=== PATIENT | female | born 1985 | race Caucasian/White ===

== ENCOUNTER 2016-08-25 07:30 | Inpatient (IN) | payer OTHER ==
[~2016-08-25] VITALS: Ht 167.6 cm; Wt 93.0 kg
[~2016-08-25 07:30] MED LIST: /PANT40TA PO; AUGM875T27 PO; KEFL500C7 PO; METF500T PO; NORCOTAB PO; PRENTAB9 PO; VENTAER IN; ZYRT10CA PO; ceftin PO
[2016-08-28] VITALS (8 sets, daily range): BP systolic 116–145; BP diastolic 65–86
[2016-08-28] MEDS ORDERED: LR 1,000 ML IV ONE (05:45)
[2016-08-28 05:53] LABS: MEAN CORPUSCULAR HEMOGLOBIN 32.3 pg (27.0-33.0); MEAN CORPUSCULAR HGB CONC 36.3 g/dl (32.0-36.5); MEAN CORPUSCULAR VOLUME 88.8 fl (80.0-96.0); RED CELL DISTRIBUTION WIDTH 12.7 % (11.5-14.5); WHITE BLOOD COUNT 11.7 K/mm3 (4.0-10.0)
[2016-08-28] MEDS ORDERED: BICITRA 30ML SOLN UDC PO ONE (06:00)
[2016-08-28] MEDS ORDERED: LR 1,000 ML IV SCH ×2 (06:30→09:45)
[2016-08-28] MEDS ORDERED: NALBUPHINE HCL 10 MG/ML AMP (J2300) IV PRN (07:50)
[2016-08-28] MEDS ORDERED: ONDANSETRON 4MG/2ML VIAL (J2405) IV PRN ×3 (07:50→09:45)
[2016-08-28] MEDS ORDERED: NALOXONE INJ 0.4 MG/1 ML VIAL (J2310) IV PRN ×2 (07:50)
[2016-08-28] MEDS ORDERED: METOCLOPRAMIDE INJ 10MG/2ML VIAL (J2765) IV PRN (07:50)
[2016-08-28] MEDS ORDERED: MORPHINE PRES-FREE INJ 10 MG/10 ML VIAL (J2274) As Ordered ONE (08:14)
[2016-08-28] MEDS ORDERED: ONDANSETRON 4MG/2ML VIAL (J2405) As Ordered ONE (08:16)
[2016-08-28] MEDS ORDERED: METOCLOPRAMIDE INJ 10MG/2ML VIAL (J2765) As Ordered ONE (08:16)
[2016-08-28] MEDS ORDERED: OXYTOCIN INJ 10 UNITS/ML VIAL (J2590) As Ordered ONE (08:16)
[2016-08-28] MEDS ORDERED: KETOROLAC 60 MG/2 ML VIAL (J1885) As Ordered ONE (08:16)
[2016-08-28] MEDS: PRENATAL VITAMIN TAB PO SCH (09:00)
[2016-08-28 09:04] LABS: CORD GAS ABE V -2.5; CORD GAS HCO3 V 23.2 MEQ/L; CORD GAS O2 SAT V 77.7 %; CORD GAS PCO2 V 43.1 mmHg; CORD GAS PH V 7.349 UNITS; CORD GAS PO2 V 33.3 mmHg; CORD GAS SBC V 21.9 MEQ/L; CORD GAS TCO2 V 24.5 MEQ/L
[2016-08-28] MEDS ORDERED: MEASLES,MUMPS,RUBELLA VACCINE INJ (MMR-II) (90707) SC SCH (09:15)
[2016-08-28] MEDS ORDERED: RHOGAM 300 MCG (1500 IU) INJ (J2790) IM SCH (09:15)
[2016-08-28] MEDS ORDERED: PROMETHAZINE 25 MG TAB PO PRN (09:15)
[2016-08-28] MEDS ORDERED: PERCOCET 5MG/325MG TAB PO PRN ×2 (09:15→09:45)
[2016-08-28] MEDS ORDERED: fentaNYL 100 MCG/2 ML INJECTION (J3010) IV PRN (09:45)
[2016-08-28] MEDS ORDERED: diphenhydrAMINE INJ 50MG/ML VIAL (J1200) IV PRN (09:45)
[2016-08-28] MEDS ORDERED: KETOROLAC 30 MG/ML VIAL (J1885) IV PRN (09:45)
[2016-08-28] MEDS ORDERED: MEPERIDINE INJ 25 MG/ML VIAL (J2175) IV PRN (09:45)
[2016-08-28] MEDS: KETOROLAC 30 MG/ML VIAL (J1885) IV SCH ×2 (13:22→20:25)
[2016-08-28] MEDS: LR 1,000 ML IV SCH ×2 (15:59→17:34)
[2016-08-28] MEDS: DOCUSATE SODIUM 100 MG CAP PO SCH (20:25)
[2016-08-29] MEDS: LR 1,000 ML IV SCH ×3 (01:13→16:40)
[2016-08-29] MEDS: KETOROLAC 30 MG/ML VIAL (J1885) IV SCH ×2 (01:13→07:47)
[2016-08-29 02:13] VITALS: BP 124/69
[2016-08-29] MEDS: PERCOCET 5MG/325MG TAB PO PRN ×2 (04:58→12:57)
[2016-08-29 06:24] VITALS: BP 114/58
[2016-08-29 07:19] LABS: MEAN CORPUSCULAR HEMOGLOBIN 31.8 pg (27.0-33.0); MEAN CORPUSCULAR HGB CONC 34.9 g/dl (32.0-36.5); MEAN CORPUSCULAR VOLUME 91.1 fl (80.0-96.0); RED CELL DISTRIBUTION WIDTH 12.8 % (11.5-14.5); WHITE BLOOD COUNT 11.2 K/mm3 (4.0-10.0)
[2016-08-29] MEDS: DOCUSATE SODIUM 100 MG CAP PO SCH ×2 (08:16→21:00)
[2016-08-29] MEDS: PRENATAL VITAMIN TAB PO SCH (08:17)
[2016-08-29 10:15] VITALS: BP 128/82
[2016-08-29 14:26] VITALS: BP 125/85
[2016-08-29] MEDS: IBUPROFEN 800 MG TAB PO SCH (15:41)
[2016-08-29] MEDS ORDERED: OXYC1TAB23 PO (17:48)
[2016-08-29] MEDS ORDERED: IBUP600T26 PO (17:49)
[2016-08-29] MEDS ORDERED: COLA100C PO (17:49)
[2016-08-29 18:12] VITALS: BP 120/81
[2016-08-30] MEDS: IBUPROFEN 800 MG TAB PO SCH ×2 (00:02→08:29)
[2016-08-30] MEDS: PRENATAL VITAMIN TAB PO SCH (08:28)
[2016-08-30] MEDS: DOCUSATE SODIUM 100 MG CAP PO SCH (08:28)
[2016-08-30] MEDS ORDERED: IBUP-1114 PO (09:46)
[2016-08-30] MEDS ORDERED: OXYC1TAB23 PO (09:46)
--- NOTE | 2016-08-30 10:55 | DSES ---
DATE OF ADMISSION: 08/28/2016 DATE OF DISCHARGE: 08/30/2016 DISCHARGE DIAGNOSIS: Repeat section. DISCHARGE CONDITION: Stable. HOSPITAL COURSE: Patient presented at 39 weeks 3 days estimated gestational age for a scheduled section. She underwent uncomplicated repeat section productive of a live born . is 9 and 9. Weighed 7 pounds, 3184 grams. Ms. Adam did well postoperatively. By postoperative day #2 had meet all discharge criteria's and discharged home in stable condition. PHYSICAL EXAMINATION ON DAY OF DISCHARGE: VITAL SIGNS: Her vital signs were stable. She was afebrile. GENERAL: Her general appearance was well-appearing. No acute distress. ABDOMEN: Was soft, non-tender. Her fundus is below the umbilicus. Her incision was clean, cry and intact, well-appointed with Steri-Strips. EXTREMITIES: Negative for calf tenderness. DISCHARGE MEDICATIONS: Colace, ibuprofen and Percocet. DISCHARGE INSTRUCTIONS: 1. She was instructed to follow up in two weeks. 2. Report severe pain, heavy bleeding, fever or incisional issues
== END 2016-08-30 11:50 | disposition home or self-care (01) | DRG 540 ==
LOC: M OBS 08-28 05:14
PROVIDERS: ADMIT Obstetrics & Gynecology; ATTEND Obstetrics & Gynecology
PROC: 10D00Z1 Extraction of Products of Conception, Low, Open Approach (ICD-10-PCS; principal; 2016-08-28 07:30)
DX: O99.12 Other diseases of the blood and blood-forming organs and certain disorders involving the immune mechanism complicating childbirth (principal); F17.200 Nicotine dependence, unspecified, uncomplicated; Z37.0 Single live birth; Z3A.39 39 weeks gestation of pregnancy; O34.211 Maternal care for low transverse scar from previous cesarean delivery; O99.334 Smoking (tobacco) complicating childbirth; D69.6 Thrombocytopenia, unspecified; Z83.3 Family history of diabetes mellitus; Z82.49 Family history of ischemic heart disease and other diseases of the circulatory system

== ENCOUNTER 2017-02-07 08:15 | Emergency (ER) | payer OTHER ==
[~2017-02-07] VITALS: Ht 167.6 cm; Wt 84.4 kg
[~2017-02-07 08:15] MED LIST changes: +COLA100C5 PO; +IBUP-1022 PO; +IBUP-1114 PO; +KEFL500C17 PO; -KEFL500C7 PO; +OXYC1TAB23 PO
[2017-02-07 08:18] VITALS: BP 134/83
[2017-02-07] MEDS ORDERED: CLEO300C2 PO (08:49)
[2017-02-07] MEDS ORDERED: MAGICMW MT (08:49)
[2017-02-07] MEDS ORDERED: NORCOTAB PO (08:49)
== END 2017-02-07 09:13 | disposition home or self-care (01) ==
LOC: M ED 08:15
DX: K04.7 Periapical abscess without sinus (principal); K02.9 Dental caries, unspecified; F17.200 Nicotine dependence, unspecified, uncomplicated; Z88.1 Allergy status to other antibiotic agents

== ENCOUNTER 2017-04-23 10:24 | Emergency (ER) | payer OTHER ==
[~2017-04-23] VITALS: Ht 167.6 cm; Wt 89.2 kg
[~2017-04-23 10:24] MED LIST changes: +CLEO300C2 PO; +MAGICMW MT
[2017-04-23] MEDS ORDERED: NS 1,000 ML IV ONE (13:30)
[2017-04-23 13:40] LABS: BASO % 0.4 % (0.0-1.0); EOS # 0.3 K/mm3 (0.0-0.50); EOS % 2.8 % (0.0-3.0); LARGE UNSTAINED CELL # 0.1 K/mm3 (0.0-0.4); LARGE UNSTAINED CELL % 1.1 % (0.0-4.0); LYMPH # 2.3 K/mm3 (1.5-4.5); LYMPH % 23.7 % (24.0-44.0); MEAN CORPUSCULAR HEMOGLOBIN 31.6 pg (27.0-33.0); MEAN CORPUSCULAR HGB CONC 34.8 g/dl (32.0-36.5); MEAN CORPUSCULAR VOLUME 90.9 fl (80.0-96.0); MONO # 0.3 K/mm3 (0.0-0.8); MONO % 3.2 % (0.0-5.0); NEUTROPHILS # 6.7 K/mm3 (1.8-7.7); NEUTROPHILS % 68.7 % (36.0-66.0); PLATELET COUNT, AUTOMATED 145 k/mm3 (150-450); WHITE BLOOD COUNT 9.8 K/mm3 (4.0-10.0)
--- NOTE | 2017-04-23 14:59 | REP ---
Clinical: Left Flank pain. Technique: Ballard scale and color Doppler evaluation of the kidneys and renal vasculature using curved array transducer. Findings: The kidneys are essentially normal in contour size and echogenicity and reniform shape without hydronephrosis, nephrolithiasis, cystic or renal mass lesion. Right kidney measures 12.1 x 4.8 x 4.8 cm. Left kidney measures 12.0 x 4.7 x 4.8 cm. Partial duplication of the bilateral kidneys cannot be excluded. Bladder is incompletely distended and grossly normal by current evaluation. Impression: Normal renal US. No hydronephrosis Signed by Marcus Iniguez MD 04/23/2017 02:52 P
--- NOTE | 2017-04-23 15:04 | REP ---
Obstetric sonography: History: Low back pain. Unknown LMP. Findings: Transabdominal and transvaginal scanning are performed. An intrauterine gestational sac is seen with a yolk sac, but no visible embryonic pole. A trace of free fluid is seen in the cul-de-sac. Mean sac size diameter of 12 mm corresponds with a gestational age estimate of 6 weeks 0 days. Uterine dimensions are 10.1 x 5.4 x 6.1 cm. There is a small fibroid measuring 0.7 cm in greatest diameter. A normal right ovary is seen with dimensions of 3.2 x 1.7 x 3.7 cm. Its Doppler flow is normal, resistive index 0.51. The left ovary measures 3.2 x 1.8 x 2.7 cm. Its Doppler flow was normal, resistive index 0.61. There is a paraovarian cyst in the left adnexa measuring 3.2 x 2.9 x 2.9 cm. Impression: 6-week size gestational sac in the uterus with a yolk sac but no identifiable embryonic pole. This is nonspecific. Early IUP versus missed AB. Cannot completely exclude ectopic, although this is felt to be unlikely. Consider clinical and possibly sonographic followup. There is a small 0.7 cm uterine fibroid. Signed by Ernst Black MD 04/23/2017 03:55 P
[2017-04-23 15:23] LABS: ANION GAP 9 MEQ/L (8-16); BLOOD UREA NITROGEN 4 MG/DL (7-18); CALCIUM LEVEL 8.2 MG/DL (8.5-10.1); CARBON DIOXIDE LEVEL 25 MEQ/L (21-32); CHLORIDE LEVEL 108 MEQ/L (98-107); CREATININE FOR GFR 0.58 MG/DL (0.55-1.02); GLOMERULAR FILTRATION RATE > 60.0 (>60); GLUCOSE, FASTING 83 MG/DL (70-105); HCG, SERUM QUANTITATIVE 10127 MIU/ML; SODIUM LEVEL 142 MEQ/L (136-145)
[2017-04-23 16:01] VITALS: BP 107/77
== END 2017-04-23 16:06 | disposition home or self-care (01) ==
LOC: M ED 10:24
DX: O26.891 Other specified pregnancy related conditions, first trimester (principal); R10.9 Unspecified abdominal pain; Z3A.00 Weeks of gestation of pregnancy not specified; Z88.1 Allergy status to other antibiotic agents; Z87.19 Personal history of other diseases of the digestive system

== ENCOUNTER → 2017-05-28 | Outpatient (CLI) | payer OTHER ==
[2017-05-28 15:04] LABS: HBsAg Prenatal NEGATIVE (NEGATIVE)
== END ==
LOC: M LAB 13:30
PROVIDERS: ATTEND Advanced Practice Midwife
DX: Z34.81 Encounter for supervision of other normal pregnancy, first trimester (principal)

== ENCOUNTER → 2017-05-30 | Outpatient (REF) | payer OTHER | LOC: M LAB REF 13:00 | PROVIDERS: ATTEND Advanced Practice Midwife | DX: Z34.81 Encounter for supervision of other normal pregnancy, first trimester (principal) ==

== ENCOUNTER → 2017-07-26 | Outpatient (CLI) | payer OTHER ==
--- NOTE | 2017-07-26 16:53 | REP ---
OB ULTRASOUND: Real-time sonographic evaluation of the gravid uterus is performed. There is a single living intrauterine gestation. Estimated gestational age is 18 weeks 4 days, EDC . Today's measurements indicate appropriate growth. BPD 42 mm = 18 weeks 6 days, 56th percentile HC 157 mm = 18 weeks 4 days, 50th percentile AC 134 mm = 18 weeks 6 days, 56th percentile FL 29 mm = 18 weeks 6 days, 55th percentile HC/AC ratio 1.17, within normal range. Estimated weight 259 grams, 55th percentile. Cervix is closed and measures 4.3 cm in length. heart rate 149 beats per minute. SEEN/GROSSLY UNREMARKABLE Lateral ventricles yes Posterior fossa yes Upper lip yes Four-chamber heart no LVOT no RVOT no Stomach yes Cord insertion yes Three vessel cord yes Kidneys no Bladder yes Spine no position: Breech. Placenta: Posterior and grade 1 with no previa or abruption. Amniotic fluid: Within normal limits. Signed by Arnulfo Ballard MD 07/27/2017 04:54 P
== END ==
LOC: M RAD 14:12
PROVIDERS: ATTEND Advanced Practice Midwife
DX: Z34.82 Encounter for supervision of other normal pregnancy, second trimester (principal)

== ENCOUNTER → 2017-10-18 | Outpatient (CLI) | payer OTHER ==
[2017-10-18 10:49] LABS: HEMATOCRIT 39.6 % (36.0-47.0); HEMOGLOBIN 13.4 g/dl (12.0-16.0); MEAN CORPUSCULAR HEMOGLOBIN 30.1 pg (27.0-33.0); MEAN CORPUSCULAR HGB CONC 33.8 g/dl (32.0-36.5); PLATELET COUNT, AUTOMATED 167 10^3/uL (150-450); RED BLOOD COUNT 4.45 10^6/uL (4.00-5.40); RED CELL DISTRIBUTION WIDTH 12.8 % (11.5-14.5); WHITE BLOOD COUNT 13.4 10^3/uL (4.0-10.0)
[2017-10-18 11:47] LABS: GLUCOSE CHALLENGE TEST 1 HOUR 91 MG/DL (LESS THAN 140)
== END ==
LOC: M LAB 08:17
DX: Z34.82 Encounter for supervision of other normal pregnancy, second trimester (principal)
CPT/HCPCS: 82950

== ENCOUNTER → 2017-10-18 | Outpatient (CLI) | payer OTHER | LOC: M RAD 08:28 | DX: Z34.82 Encounter for supervision of other normal pregnancy, second trimester (principal) | CPT/HCPCS: 76816 ==

== ENCOUNTER → 2017-11-23 | Outpatient (REF) | payer OTHER | LOC: M LAB REF 10:12 | DX: Z34.83 Encounter for supervision of other normal pregnancy, third trimester (principal) | CPT/HCPCS: 87081; 87186 ==

== ENCOUNTER 2017-12-17 06:01 | Inpatient (IN) | payer OTHER ==
[2017-12-17] MEDS ORDERED: ceFAZolin 2 GM/D5W 50 ML IV BAG (J0690 PER 500MG) As Ordered (06:38)
[2017-12-17] MEDS ORDERED: BICITRA 30ML SOLN UDC As Ordered (06:38)
[2017-12-17] MEDS: LR 1,000 ML IV ×4 (07:00→22:17)
[2017-12-17] MEDS: BICITRA 30ML SOLN UDC PO (07:00)
[2017-12-17 07:06] LABS: HEMATOCRIT 36.3 % (36.0-47.0); HEMOGLOBIN 12.6 g/dl (12.0-15.5); MEAN CORPUSCULAR HEMOGLOBIN 30.7 pg (27.0-33.0); MEAN CORPUSCULAR HGB CONC 34.7 g/dl (32.0-36.5); MEAN CORPUSCULAR VOLUME 88.5 fl (80.0-96.0); PLATELET COUNT, AUTOMATED 123 10^3/uL (150-450); RED CELL DISTRIBUTION WIDTH 13.3 % (11.5-14.5); WHITE BLOOD COUNT 11.3 10^3/uL (4.0-10.0)
[2017-12-17] MEDS ORDERED: LR 1,000 ML IV (07:30)
[2017-12-17] MEDS ORDERED: KETOROLAC 60 MG/2 ML VIAL (J1885) As Ordered (07:49)
[2017-12-17] MEDS ORDERED: fentaNYL 100 MCG/2 ML INJECTION (J3010) As Ordered (07:50)
[2017-12-17] MEDS ORDERED: ONDANSETRON 4MG/2ML VIAL (J2405) As Ordered (07:50)
[2017-12-17] MEDS ORDERED: MORPHINE PRES-FREE INJ 10 MG/10 ML VIAL (J2274) As Ordered (07:50)
[2017-12-17] MEDS ORDERED: OXYTOCIN INJ 10 UNITS/ML VIAL (J2590) As Ordered (07:50)
[2017-12-17] MEDS ORDERED: dexameTHASONE 4 MG/ML 1ML VIAL (J1100) As Ordered (07:50)
[2017-12-17] MEDS ORDERED: ONDANSETRON 4MG/2ML VIAL (J2405) IV ×3 (08:38→10:30)
[2017-12-17] MEDS ORDERED: NALBUPHINE HCL 10 MG/ML AMP (J2300) IV (08:38)
[2017-12-17] MEDS ORDERED: NALOXONE INJ 0.4 MG/1 ML VIAL (J2310) IV ×2 (08:38)
[2017-12-17] MEDS ORDERED: ePHEDrine SULFATE 25 MG/5 ML(5MG/ML) SYRINGE As Ordered (08:43)
[2017-12-17] MEDS ORDERED: PHENYLEPHRINE INJ 10MG/ML VIAL (J2370) As Ordered (08:43)
[2017-12-17] MEDS ORDERED: PHENYLephrine HCL 500 MCG/5 ML (100MCG/ML) SYRINGE (J2370) As Ordered (08:43)
[2017-12-17] MEDS: PRENATAL VITAMINS CHEWABLE TABLET PO (09:00)
[2017-12-17] MEDS ORDERED: DOCUSATE SODIUM 100 MG CAP PO (09:45)
[2017-12-17] MEDS ORDERED: MOM 30ML SUSPENSION UDC PO (09:45)
[2017-12-17] MEDS ORDERED: OXYTOCIN DRIP 30 UNITS in APPROPRIATE DILUENT 1 EA IV (09:45)
[2017-12-17] MEDS ORDERED: diphenhydrAMINE INJ 50MG/ML VIAL (J1200) IV (10:30)
[2017-12-17] MEDS ORDERED: PERCOCET 5MG/325MG TAB PO (10:30)
[2017-12-17] MEDS ORDERED: fentaNYL 100 MCG/2 ML INJECTION (J3010) IV (10:30)
[2017-12-17] MEDS ORDERED: MEPERIDINE INJ 25 MG/ML VIAL (J2175) IV (10:30)
[2017-12-17] MEDS ORDERED: METOCLOPRAMIDE INJ 10MG/2ML VIAL (J2765) IV (10:30)
[2017-12-17] MEDS ORDERED: OXYTOCIN 30 UNITS IN 0.9% NaCl 500ML IV BAG (J2590) As Ordered (11:10)
[2017-12-17] MEDS: OXYTOCIN DRIP 30 UNITS in APPROPRIATE DILUENT 1 EA IV (11:23)
[2017-12-17] MEDS: RHOGAM 300 MCG (1500 IU) INJ (J2790) IM (12:26)
[2017-12-17] MEDS: MEASLES,MUMPS,RUBELLA VACCINE INJ (MMR-II) (90707) SC (12:27)
[2017-12-17] MEDS: KETOROLAC 30 MG/ML VIAL (J1885) IV ×2 (14:21→19:54)
[2017-12-17] MEDS: METOCLOPRAMIDE INJ 10MG/2ML VIAL (J2765) IV (14:31)
[2017-12-18] MEDS: KETOROLAC 30 MG/ML VIAL (J1885) IV (02:06)
[2017-12-18 07:04] LABS: HEMATOCRIT 31.3 % (36.0-47.0); MEAN CORPUSCULAR HEMOGLOBIN 30.4 pg (27.0-33.0); MEAN CORPUSCULAR HGB CONC 33.9 g/dl (32.0-36.5); MEAN CORPUSCULAR VOLUME 89.7 fl (80.0-96.0); PLATELET COUNT, AUTOMATED 102 10^3/uL (150-450); RED BLOOD COUNT 3.49 10^6/uL (4.00-5.40); RED CELL DISTRIBUTION WIDTH 13.5 % (11.5-14.5); WHITE BLOOD COUNT 13.2 10^3/uL (4.0-10.0)
[2017-12-18 07:12] LABS: HEMOGLOBIN 10.6 g/dl (12.0-15.5)
[2017-12-18] MEDS: PRENATAL VITAMINS CHEWABLE TABLET PO (08:46)
[2017-12-18] MEDS: LR 1,000 ML IV ×2 (09:45→17:45)
[2017-12-18] MEDS: IBUPROFEN 800 MG TAB PO ×2 (10:00→18:40)
[2017-12-18] MEDS: PERCOCET 5MG/325MG TAB PO ×2 (14:07→21:30)
[2017-12-19] MEDS: LR 1,000 ML IV ×2 (01:45→09:14)
[2017-12-19] MEDS: IBUPROFEN 800 MG TAB PO ×2 (02:31→10:12)
[2017-12-19] MEDS: PRENATAL VITAMINS CHEWABLE TABLET PO (08:04)
== END 2017-12-19 12:40 | disposition home or self-care (01) | DRG 540 ==
LOC: M LDI 06:01 → M OBS 11:33
PROVIDERS: Obstetrics & Gynecology
PROC: 10D00Z1 Extraction of Products of Conception, Low, Open Approach (ICD-10-PCS; principal; 2017-12-17 08:30)
PROC: 0UB70ZZ Excision of Bilateral Fallopian Tubes, Open Approach (ICD-10-PCS; 2017-12-17 08:30)
DX: O32.1XX0 Maternal care for breech presentation, not applicable or unspecified (principal); O34.211 Maternal care for low transverse scar from previous cesarean delivery; Z37.0 Single live birth; Z3A.39 39 weeks gestation of pregnancy; Z30.2 Encounter for sterilization

== ENCOUNTER 2018-09-09 08:52 | Emergency (ER) | payer OTHER ==
[~2018-09-09] VITALS: Ht 167.6 cm; Wt 100.0 kg
[2018-09-09 08:52] VITALS: BP 176/100
[~2018-09-09 08:52] MED LIST changes: +AMOX500C PO; +IBUP1TAB7 PO; +MILK120011 PO; +PERCOCET PO; +TYLE500T78 PO
[2018-09-09] MEDS ORDERED: MELO15TA28 PO (08:59)
--- NOTE | 2018-09-09 09:47 | REP ---
RIGHT ELBOW, FOUR VIEWS: There is no evidence of an acute fracture, dislocation or intrinsic bone disease. IMPRESSION: No fracture or dislocation. Electronically Signed by Arnulfo Ballard MD 09/09/2018 04:45 P
[2018-09-09] MEDS ORDERED: NAPR-50 PO (10:04)
== END 2018-09-09 10:09 | disposition home or self-care (01) ==
LOC: M ED 08:52
DX: M65.221 Calcific tendinitis, right upper arm (principal); R51 Headache; K21.9 Gastro-esophageal reflux disease without esophagitis; Z79.899 Other long term (current) drug therapy; Z88.1 Allergy status to other antibiotic agents

== ENCOUNTER 2018-11-17 09:50 | Emergency (ER) | payer OTHER ==
[~2018-11-17] VITALS: Ht 167.6 cm; Wt 93.6 kg
[2018-11-17 09:50] VITALS: BP 143/99
[~2018-11-17 09:50] MED LIST changes: -/PANT40TA PO; +HYDR-3715 PO; +MELO15TA28 PO; +NAPR-837 PO; +PROT1TAB2 PO
[2018-11-17] MEDS ORDERED: BACT2CRE TOP (10:19)
[2018-11-17] MEDS ORDERED: CLEO300C2 PO (10:19)
[2018-11-17] MEDS ORDERED: MAGICMW SSP (10:19)
== END 2018-11-17 10:24 | disposition home or self-care (01) ==
LOC: M ED 09:50
DX: S00.521A Blister (nonthermal) of lip, initial encounter (principal); F17.210 Nicotine dependence, cigarettes, uncomplicated; Y92.9 Unspecified place or not applicable

== ENCOUNTER → 2018-11-25 | Outpatient (CLI) | payer OTHER ==
[~2018-11-25] MED LIST changes: +BACT2CRE TOP; +MAGICMW SSP
[2018-11-25 11:48] LABS: BASO # 0.1 10^3/uL (0.0-0.2); BASO % 0.8 % (0.0-1.0); EOS # 0.3 10^3/uL (0.0-0.50); EOS % 3.7 % (0.0-3.0); HEMOGLOBIN 16.2 g/dl (12.0-15.5); LYMPH # 2.5 10^3/uL (1.5-4.5); LYMPH % 31.8 % (24.0-44.0); MEAN CORPUSCULAR HEMOGLOBIN 29.6 pg (27.0-33.0); MEAN CORPUSCULAR HGB CONC 33.8 g/dl (32.0-36.5); MEAN CORPUSCULAR VOLUME 87.8 fl (80.0-96.0); MONO # 0.5 10^3/uL (0.0-0.8); MONO % 6.1 % (0.0-5.0); NEUTROPHILS # 4.5 10^3/uL (1.8-7.7); NEUTROPHILS % 57.1 % (36.0-66.0); PLATELET COUNT, AUTOMATED 171 10^3/uL (150-450); RED BLOOD COUNT 5.47 10^6/uL (4.00-5.40); WHITE BLOOD COUNT 7.8 10^3/uL (4.0-10.0)
[2018-11-25 12:16] LABS: C REACTIVE PROTEIN QUANTITATIV 0.65 MG/DL (0.00-0.30); ERYTHROCYTE SEDIMENTATION RATE 3 mm/hr (0-20); RHEUMATOID FACTOR QUANT < 10.0 IU/ML (<15.0); URIC ACID 3.8 MG/DL (2.6-6.0)
== END ==
LOC: M LAB 10:53
PROVIDERS: ATTEND Physician Assistant
DX: M51.36 Other intervertebral disc degeneration, lumbar region (principal)

== ENCOUNTER → 2019-10-21 | Outpatient (CLI) | payer OTHER ==
[2019-10-21 08:14] LABS: BASO % 0.4 % (0.0-1.0); EOS # 0.3 10^3/uL (0.0-0.5); EOS % 2.6 % (0.0-3.0); HEMATOCRIT 48.6 % (36.0-47.0); HEMOGLOBIN 16.5 g/dl (12.0-15.5); LYMPH # 2.5 10^3/uL (1.5-5.0); LYMPH % 24.1 % (24.0-44.0); MEAN CORPUSCULAR HEMOGLOBIN 30.3 pg (27.0-33.0); MEAN CORPUSCULAR VOLUME 89.2 fl (80.0-96.0); MONO # 0.6 10^3/uL (0.0-0.8); MONO % 6.2 % (0.0-5.0); NEUTROPHILS # 6.7 10^3/uL (1.5-8.5); NEUTROPHILS % 66.2 % (36.0-66.0); PLATELET COUNT, AUTOMATED 152 10^3/uL (150-450); RED BLOOD COUNT 5.45 10^6/uL (4.00-5.40); WHITE BLOOD COUNT 10.2 10^3/uL (4.0-10.0)
[2019-10-21 08:51] LABS: ALBUMIN 3.7 GM/DL (3.2-5.2); ALT/SGPT 47 U/L (12-78); BILIRUBIN,TOTAL 0.4 MG/DL (0.2-1.0); BLOOD UREA NITROGEN 8 MG/DL (7-18); C REACTIVE PROTEIN QUANTITATIV 0.66 MG/DL (0.00-0.30); CALCIUM LEVEL 8.8 MG/DL (8.5-10.1); CARBON DIOXIDE LEVEL 27 MEQ/L (21-32); CHLORIDE LEVEL 109 MEQ/L (98-107); CHOLESTEROL LEVEL 152 MG/DL (<200); CREATININE FOR GFR 0.74 MG/DL (0.55-1.30); GLOMERULAR FILTRATION RATE > 60.0 (>60); GLUCOSE, FASTING 105 MG/DL (70-100); HDL CHOLESTEROL 40 MG/DL (>40); LDL CHOLESTEROL 92 MG/DL (<100); NON-HDL-C 112 MG/DL; POTASSIUM SERUM 4.2 MEQ/L (3.5-5.1); SODIUM LEVEL 140 MEQ/L (136-145); TOTAL PROTEIN 6.8 GM/DL (6.4-8.2); TRIGLYCERIDES LEVEL 101 MG/DL (<150); URIC ACID 4.4 MG/DL (2.6-6.0)
[2019-10-21 19:06] LABS: HEMOGLOBIN A1c 5.8 %
--- NOTE | 2019-10-22 08:42 | REP ---
Clinical: Palpable mass. Technique: Real time lawrence scale and color evaluation using linear high frequency transducer. Findings: Directed ultrasound examination along the right posterior paraspinous muscles at the neck demonstrates no obvious abnormality. Impression: No mass lesion or abnormality noted. Electronically Signed by Marcus Iniguez MD 10/22/2019 08:34 A
== END ==
LOC: M RAD 07:37
PROVIDERS: ATTEND Nurse Practitioner Adult Health
DX: R22.1 Localized swelling, mass and lump, neck (principal); E79.0 Hyperuricemia without signs of inflammatory arthritis and tophaceous disease; M51.36 Other intervertebral disc degeneration, lumbar region; M77.11 Lateral epicondylitis, right elbow; E66.01 Morbid (severe) obesity due to excess calories

== ENCOUNTER → 2020-02-13 | Outpatient (CLI) | payer OTHER ==
[2020-02-13 07:28] LABS: BASO # 0.1 10^3/uL (0.0-0.2); BASO % 0.5 % (0.0-1.0); EOS # 0.4 10^3/uL (0.0-0.5); EOS % 3.7 % (0.0-3.0); HEMATOCRIT 46.9 % (36.0-47.0); HEMOGLOBIN 15.7 g/dl (12.0-15.5); LYMPH # 2.7 10^3/uL (1.5-5.0); LYMPH % 27.3 % (24.0-44.0); MEAN CORPUSCULAR HEMOGLOBIN 30.2 pg (27.0-33.0); MEAN CORPUSCULAR HGB CONC 33.5 g/dl (32.0-36.5); MEAN CORPUSCULAR VOLUME 90.2 fl (80.0-96.0); MONO # 0.6 10^3/uL (0.0-0.8); MONO % 6.4 % (0.0-5.0); NEUTROPHILS # 6.1 10^3/uL (1.5-8.5); NEUTROPHILS % 61.8 % (36.0-66.0); PLATELET COUNT, AUTOMATED 146 10^3/uL (150-450); WHITE BLOOD COUNT 9.9 10^3/uL (4.0-10.0)
[2020-02-13 07:40] LABS: HEMOGLOBIN A1c 5.9 %
[2020-02-13 08:04] LABS: ALBUMIN 3.5 GM/DL (3.2-5.2); ALT/SGPT 31 U/L (12-78); BILIRUBIN,TOTAL 0.2 MG/DL (0.2-1.0); BLOOD UREA NITROGEN 10 MG/DL (7-18); CALCIUM LEVEL 8.6 MG/DL (8.5-10.1); CARBON DIOXIDE LEVEL 26 MEQ/L (21-32); CHLORIDE LEVEL 110 MEQ/L (98-107); CHOLESTEROL LEVEL 173 MG/DL (<200); CHOLESTEROL RISK RATIO 5.406 (<5); CREATININE FOR GFR 0.72 MG/DL (0.55-1.30); GLOMERULAR FILTRATION RATE > 60.0 (>60); GLUCOSE, FASTING 105 MG/DL (70-100); HDL CHOLESTEROL 32 MG/DL (>40); LDL CHOLESTEROL 105 MG/DL (<100); NON-HDL-C 141 MG/DL; POTASSIUM SERUM 4.2 MEQ/L (3.5-5.1); SODIUM LEVEL 138 MEQ/L (136-145); TOTAL PROTEIN 6.9 GM/DL (6.4-8.2); TRIGLYCERIDES LEVEL 178 MG/DL (<150); URIC ACID 4.9 MG/DL (2.6-6.0)
== END ==
LOC: M LAB 06:49
PROVIDERS: ATTEND Nurse Practitioner Adult Health
DX: E88.81 Metabolic syndrome and other insulin resistance (principal)

== ENCOUNTER 2020-03-24 10:23 | Emergency (ER) | payer OTHER ==
[~2020-03-24 10:23] MED LIST changes: +ACETAMINOPHEN 500 MG TAB As Ordered ONE; +ACETAMINOPHEN 500 MG TAB ONE; +MORPHINE 4 MG/ML 1ML VIAL/SYRINGE (J2270) As Ordered ONE; +MORPHINE 4 MG/ML 1ML VIAL/SYRINGE (J2270) ONE; +ONDANSETRON 4MG/2ML VIAL As Ordered ONE; +ONDANSETRON 4MG/2ML VIAL ONE; +PANTOPRAZOLE 40MG VIAL (C9113 PER 1) As Ordered ONE; +PANTOPRAZOLE 40MG VIAL (C9113 PER 1) ONE
--- NOTE | 2020-04-27 09:47 | ECGEPIP ---
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
[2020-05-12 20:13] LABS: BASO % 0.4 % (0.0-1.0); EOS # 0.2 10^3/uL (0.0-0.5); EOS % 2.4 % (0.0-3.0); HEMATOCRIT 48.5 % (36.0-47.0); HEMOGLOBIN 16.3 g/dl (12.0-15.5); LYMPH # 0.9 10^3/uL (1.5-5.0); LYMPH % 9.1 % (24.0-44.0); MEAN CORPUSCULAR HGB CONC 33.6 g/dl (32.0-36.5); MEAN CORPUSCULAR VOLUME 89.3 fl (80.0-96.0); MONO # 0.5 10^3/uL (0.0-0.8); MONO % 5.3 % (0.0-5.0); NEUTROPHILS # 8.2 10^3/uL (1.5-8.5); NEUTROPHILS % 82.1 % (36.0-66.0); PLATELET COUNT, AUTOMATED 127 10^3/uL (150-450); RED BLOOD COUNT 5.43 10^6/uL (4.00-5.40)
[2020-06-16 04:32] LABS: ALBUMIN 3.5 GM/DL (3.2-5.2); ALT/SGPT 580 U/L (12-78); BILIRUBIN,TOTAL 8.1 MG/DL (0.2-1.0); BLOOD UREA NITROGEN 5 MG/DL (7-18); CALCIUM LEVEL 8.5 MG/DL (8.5-10.1); CARBON DIOXIDE LEVEL 26 MEQ/L (21-32); CHLORIDE LEVEL 109 MEQ/L (98-107); CREATININE FOR GFR 0.79 MG/DL (0.55-1.30); GLOMERULAR FILTRATION RATE > 60.0 (>60); GLUCOSE, FASTING 115 MG/DL (70-100); POTASSIUM SERUM 4.1 MEQ/L (3.5-5.1); SODIUM LEVEL 140 MEQ/L (136-145); TOTAL PROTEIN 6.6 GM/DL (6.4-8.2); TROPONIN I < 0.02 NG/ML (< 0.10)
== END 2020-03-24 15:15 | disposition other institution (70) ==
LOC: M ED 10:23
DX: E80.7 Disorder of bilirubin metabolism, unspecified (principal); K80.50 Calculus of bile duct without cholangitis or cholecystitis without obstruction; R74.0 Nonspecific elevation of levels of transaminase and lactic acid dehydrogenase [LDH]; Z88.1 Allergy status to other antibiotic agents; Z87.442 Personal history of urinary calculi; Z87.448 Personal history of other diseases of urinary system; F17.200 Nicotine dependence, unspecified, uncomplicated
CPT/HCPCS: 76705; 80048; 80076; 83690; 85025; 93005; 96374; 96375; 99285; C9113; J2270; J2405

== ENCOUNTER → 2021-05-09 | Outpatient (CLI) | payer OTHER ==
[~2021-05-09] MED LIST changes: -ACETAMINOPHEN 500 MG TAB As Ordered ONE; -ACETAMINOPHEN 500 MG TAB ONE; -MORPHINE 4 MG/ML 1ML VIAL/SYRINGE (J2270) As Ordered ONE; -MORPHINE 4 MG/ML 1ML VIAL/SYRINGE (J2270) ONE; -ONDANSETRON 4MG/2ML VIAL As Ordered ONE; -ONDANSETRON 4MG/2ML VIAL ONE; -PANTOPRAZOLE 40MG VIAL (C9113 PER 1) As Ordered ONE; -PANTOPRAZOLE 40MG VIAL (C9113 PER 1) ONE
== END ==
LOC: M LABSMTC 10:21
PROVIDERS: ATTEND Pediatrics
DX: Z20.822 Contact with and (suspected) exposure to COVID-19 (principal)

== ENCOUNTER → 2023-06-20 | Outpatient (CLI) | payer OTHER ==
[2023-06-20 16:27] LABS: HEMOGLOBIN A1c 5.4 % (4.0-6.0)
[2023-06-20 16:31] LABS: FREE T4 1.02 NG/DL (0.89-1.76); THYROID STIMULATING HORMONE 2.805 uIU/ML (0.55-4.78)
[2023-06-20 16:32] LABS: PROLACTIN 6.04 NG/ML
[2023-06-20 19:36] LABS: CHLAMYDIA DNA AMPLIFICATION NEGATIVE (NEGATIVE); GC DNA AMPLIFICATION NEGATIVE (NEGATIVE)
== END ==
LOC: M PLALAB 12:37
PROVIDERS: ATTEND Nurse Practitioner Family
DX: N92.6 Irregular menstruation, unspecified (principal); R10.2 Pelvic and perineal pain; N94.10 Unspecified dyspareunia

== ENCOUNTER → 2023-06-25 | Outpatient (CLI) | payer OTHER | LOC: M WHC 13:15 | PROVIDERS: ATTEND Nurse Practitioner Family | DX: N92.6 Irregular menstruation, unspecified (principal); R10.2 Pelvic and perineal pain ==

== ENCOUNTER → 2023-07-31 | Outpatient (REF) | payer OTHER | LOC: M SFHCWAGY 13:10 | PROVIDERS: ATTEND Nurse Practitioner Family | DX: Z12.4 Encounter for screening for malignant neoplasm of cervix (principal) ==

== ENCOUNTER → 2023-08-22 | Outpatient (REF) | payer OTHER | LOC: M SFHCWAGY 12:34 | PROVIDERS: ATTEND Nurse Practitioner Family | DX: N92.1 Excessive and frequent menstruation with irregular cycle (principal) ==

== ENCOUNTER 2024-07-12 08:43 | Emergency (ER) | payer OTHER ==
[~2024-07-12] VITALS: Ht 167.6 cm; Wt 102.6 kg
[2024-07-12] MEDS ORDERED: IBUP200C25 PO (08:51)
[2024-07-12 09:49] LABS: BASO # 0.1 10^3/uL (0.0-0.2); BASO % 0.4 % (0.0-1.0); EOS # 0.3 10^3/uL (0.0-0.5); EOS % 1.9 % (0.0-3.0); HEMATOCRIT 46.1 % (36.0-47.0); LYMPH # 1.9 10^3/uL (1.5-5.0); LYMPH % 13.3 % (24.0-44.0); MEAN CORPUSCULAR HEMOGLOBIN 29.9 pg (27.0-33.0); MEAN CORPUSCULAR HGB CONC 34.7 g/dl (32.0-36.5); MEAN CORPUSCULAR VOLUME 86.2 fl (80.0-96.0); MONO # 0.8 10^3/uL (0.0-0.8); MONO % 5.2 % (2.0-8.0); NEUTROPHILS # 11.3 10^3/uL (1.5-8.5); NEUTROPHILS % 78.2 % (36.0-66.0); PLATELET COUNT, AUTOMATED 163 10^3/uL (150-450); RED BLOOD COUNT 5.35 10^6/uL (4.00-5.40); WHITE BLOOD COUNT 14.4 10^3/uL (4.0-10.0)
[2024-07-12] MEDS: KETOROLAC 30 MG/ML 1ML VIAL IV ONE (09:54)
[2024-07-12 10:12] LABS: BLOOD UREA NITROGEN < 5 MG/DL (9-23); CALCIUM LEVEL 9.2 MG/DL (8.5-10.1); CARBON DIOXIDE LEVEL 27 MMOL/L (20-31); CHLORIDE LEVEL 109 MMOL/L (98-107); CREATININE FOR GFR 0.75 MG/DL (0.55-1.30); GLOMERULAR FILTRATION RATE > 60.0 (>60); GLUCOSE, FASTING 126 MG/DL (60-100); POTASSIUM SERUM 3.8 MMOL/L (3.5-5.1); SODIUM LEVEL 138 MMOL/L (136-145)
[2024-07-12] MEDS: dexAMETHasone 20MG/5ML VIAL IV ONE (10:28)
[2024-07-12] MEDS: PENICILLIN V POTASSIUM 500 MG TAB PO ONE (10:34)
[2024-07-12] MEDS ORDERED: PENI500T PO (10:53)
[2024-07-12 11:18] VITALS: BP 146/97; TEMP 97.8; O2SAT 98
== END 2024-07-12 11:18 | disposition home or self-care (01) ==
LOC: M ED 08:43
DX: J02.0 Streptococcal pharyngitis (principal); K21.9 Gastro-esophageal reflux disease without esophagitis; K80.20 Calculus of gallbladder without cholecystitis without obstruction; M54.9 Dorsalgia, unspecified; Z88.1 Allergy status to other antibiotic agents
CPT/HCPCS: 80048; 85025; 87486; 87581; 87633; 87798; 87880; 96374; 96375; 99284; J1100; J1885